=== PATIENT | female | born 1965 | race Caucasian/White ===

== ENCOUNTER → 2016-04-28 | Outpatient (CLI) | payer BC ==
--- NOTE | 2016-04-28 09:04 | MM ---
Reason for exam: clinical finding. Baseline mammogram. History: Patient is nulliparous. Physical Findings: Nurse Summary: 1cm nodule in the left breast at 1 o'clock (nurse kp). MG 3D Diag Mammo W/Cad SABRA Bilateral CC and MLO view(s) were taken. XCCL view(s) were taken of the left breast. The breast tissue is heterogeneously dense. This may lower the sensitivity of mammography. Circumscribed 4mm oval nodular asymmetry anterior lateral left breast on CC tomosynthesis has overall benign characteristics. Palpable marker along the upper outer left breast. These results were verbally communicated with the patient and result sheet given to the patient on 04/28/16. ASSESSMENT: Incomplete: need additional imaging evaluation, BI-RAD 0 RECOMMENDATION: Ultrasound of the left breast.
--- NOTE | 2016-04-28 09:18 | USB ---
Reason for exam: additional evaluation requested from abnormal screening. History: Patient is nulliparous. US Breast LT Left breast ultrasound including all four quadrants, the retroareolar region and axilla demonstrates a 0.36 x x0.18 x 0.45cm lesion too small to characterize at 1 o'clock, suspected lymph node with apparent echogenic hilum, corresponds to the palpable area. A 6 month follow up recommended for the mammographic finding. These results were verbally communicated with the patient and result sheet given to the patient on 04/28/16. ASSESSMENT: Probably benign, BI-RAD 3 RECOMMENDATION: Follow-up diagnostic mammogram of the left breast in 6 months.
== END | disposition home or self-care (01) ==
LOC: RADMAMWWP 07:31
PROVIDERS: ATTEND Obstetrics & Gynecology
DX: R92.8 Other abnormal and inconclusive findings on diagnostic imaging of breast (principal)
CPT/HCPCS: 76641; G0204; G0279

== ENCOUNTER → 2016-06-03 | Outpatient (CLI) | payer BC ==
[2016-06-03 07:53] LABS: Basophils # (A) 0.1 k/uL (0-0.2); Basophils % (A) 1 %; CH 34.2; CHCM 34.2; Eosinophils # (A) 0.3 k/uL (0-0.7); Eosinophils % (A) 5 %; HCT 43.2 % (34.0-46.0); HDW 2.63; HGB 14.2 gm/dL (11.4-16.0); Luc # (Auto) 0.23; Luc % (Auto) 4; Lymphocytes # (A) 1.3 k/uL (1.0-4.8); Lymphocytes % (A) 23 %; MCHC 32.9 g/dL (31.0-37.0); MCV 100.5 fL (80.0-100.0); Mean Platelet Volume 7.7; Monocytes # (A) 0.2 k/uL (0-1.0); Monocytes % (A) 5 %; Neutrophils # (A) 3.3 k/uL (1.3-7.7); Neutrophils % (A) 62 %; RDW 12.7 % (11.5-15.5); WBC 5.4 k/uL (3.8-10.6); WBC (Perox) 5.45
== END | disposition home or self-care (01) ==
LOC: LABPAT 07:24
PROVIDERS: ATTEND Obstetrics & Gynecology
DX: Z01.812 Encounter for preprocedural laboratory examination (principal)
CPT/HCPCS: 85025

== ENCOUNTER 2016-06-14 07:28 | Day surgery (SDC) | payer BC ==
[2016-06-10 13:55] VITALS: BMI 21.9
--- NOTE | 2016-06-13 20:23 | HP ---
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 She is scheduled for left labial lesion resection under anesthetic. ALLERGIES: CODEINE makes her pass out. MEDICATIONS: 1. Advil. 2. Aspirin p.r.n. PAST MEDICAL HISTORY: None. PAST SURGICAL HISTORY: Oral surgery. 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 No recent history of abnormal Pap smear but positive history for VIN2. SOCIAL HISTORY: She is a former smoker. She is . Negative for current tobacco, alcohol or drug use. FAMILY HISTORY: Noncontributory. REVIEW OF SYSTEMS: Negative except for that described above. PHYSICAL EXAM: Blood pressure 146/92, heart rate 73. Height 5 feet 5 inches. Weight 145 pounds. This is a pleasant female in no apparent distress. HEENT exam is unremarkable. LUNGS: Clear to auscultation bilaterally and the heart is regular rate and rhythm. ABDOMEN: Soft and nontender. On pelvic exam, she has a visible raised white lesion involving the left labia minora and previous ( ). The remainder of the external genitalia is negative for additional lesions. ASSESSMENT: A 51-year-old, 0 woman with DUY-2 of the left labium minora. Due to location of the lesion, surgical excision is felt to be the best option for dealing with this delicate area of tissue. The patient has been counseled regarding other options including topical treatment or CO2 laser ablation. She was counseled on the risks of the procedure which include disfigurement and scarring and possible infection. There is also possibility of incomplete resection and recurrence. The patient understands these risks and agrees to proceed. She is scheduled for the above-named procedure on 06/14/2016.
[~2016-06-14 07:28] MED LIST: DEXAMETHASONE SOD PHOSPHATE 10 MG/ML 1 ML VIAL IV ONE; HYDROmorphone 1 MG/ML 1 ML SYRINGE IVP PRN; LACTATED RINGERS 1,000 ML IV SCH; LIDOCAINE 1% 20 ML VIAL (10MG/ML) FOR IV START INTRADERMA PRN; MIDAZOLAM 2 MG/2 ML VIAL IV PRN; ONDANSETRON 4 MG/2 ML VIAL IVP ONE; Pre Op ABX Message 1 EACH MISC MISCELLANE ONE; SCOPOLAMINE 1.5MG/72HR PATCH TRANSDERM ONE
[2016-06-14] MEDS ORDERED: fentaNYL (PF) 50 MCG/ML 2 ML AMP ONE (08:20)
[2016-06-14] MEDS ORDERED: PROPOFOL 10 MG/ML 20 ML VIAL IV ONE (08:20)
[2016-06-14] MEDS ORDERED: MIDAZOLAM 2 MG/2 ML VIAL ONE (08:20)
[2016-06-14] MEDS ORDERED: LIDOCAINE 1% INJ 10MG/ML (20 ML MDV) ONE (08:20)
[2016-06-14] MEDS ORDERED: KETOROLAC 30 MG/ML 1 ML VIAL ONE (08:20)
[2016-06-14] MEDS ORDERED: LIDOCAINE 1% INJ 10MG/ML (20 ML MDV) SQ ONE (08:39)
--- NOTE | 2016-06-14 08:47 | P.OP ---
Date of Procedure: 06/14/16 Preoperative Diagnosis: Left labial DUY 2 Postoperative Diagnosis: Same Anesthesia: local, other Surgeon: Lindsay Gómez Estimated Blood Loss (ml): 2 IV fluids (ml): 400 Urine output (ml): 0 Pathology: other (Left labial lesion) Condition: stable Disposition: PACU Indications for Procedure: Left labial DUY 2 at the periphery of the left labia presenting comfortable resection in the office setting. Operative Findings: Thickened, left changes of the skin at the periphery of the left labia consistent with DUY Description of Procedure: After the patient was met in the preoperative holding area and all questions were answered, she was taken to the operating room where sedation was administered without incident. The left labia was inspected and the visceral limits of the on abnormalities were delineated with a marking pen. Once approximately 1.5 cm in vertical length and approximately 0.5 cm in depth. The left labia was then infused with 1% lidocaine plain. 11 blade scalpel was then utilized to resect the area of concern. 4-0 Vicryl suture was then utilized to reapproximate the labial tissue subcuticular fashion. Bacitracin was applied to the sites. The rest of the external genitalia was inspected no other gross visual lesions were noted. The patient was awoken from anesthetic without incident and transported to recovery area.
[2016-06-14 09:00] VITALS: TEMP 97.1
[2016-06-14 09:45] VITALS: RESP 16
[2016-06-14 10:00] VITALS: BP 122/75; PULSE 76
== END 2016-06-14 10:20 | disposition home or self-care (01) ==
LOC: OR 07:28
PROVIDERS: ATTEND Obstetrics & Gynecology
DX: D07.1 Carcinoma in situ of vulva (principal); Z87.891 Personal history of nicotine dependence; Z88.5 Allergy status to narcotic agent; K21.9 Gastro-esophageal reflux disease without esophagitis; Z79.3 Long term (current) use of hormonal contraceptives; Z79.1 Long term (current) use of non-steroidal anti-inflammatories (NSAID); Z79.82 Long term (current) use of aspirin
CPT/HCPCS: 11622; 81025; 88305; J2250; J1100; J2405; J2001; J3010; J1885; J2704

== ENCOUNTER → 2016-10-28 | Outpatient (CLI) | payer BC ==
--- NOTE | 2016-10-31 09:15 | MM ---
Reason for exam: follow-up at short interval from prior study. Last mammogram was performed 6 months ago. History: Patient is nulliparous. Physical Findings: Nurse Summary: A 0.5cm nodule in the left breast at 1:30 o'clock (nurse dw). MG 3D Diag Mammo W/Cad LT CC and MLO view(s) were taken of the left breast. Prior study comparison: April 28, 2016, bilateral MG 3d diag mammo w/cad SABRA. The breast tissue is heterogeneously dense. This may lower the sensitivity of mammography. There is no discrete abnormality, No abnormalities at BB. These results were verbally communicated with the patient and result sheet given to the patient on 10/28/16. ASSESSMENT: Benign, BI-RAD 2 RECOMMENDATION: Routine screening mammogram of both breasts in 6 months. Back on schedule.
== END | disposition home or self-care (01) ==
LOC: RADMAMWWP 07:01
PROVIDERS: ATTEND Obstetrics & Gynecology
DX: R92.8 Other abnormal and inconclusive findings on diagnostic imaging of breast (principal)
CPT/HCPCS: G0206; G0279

== ENCOUNTER 2017-05-12 07:22 | Day surgery (SDC) | payer BC ==
[2017-05-09 15:05] VITALS: BMI 21.9
[~2017-05-12 07:22] MED LIST changes: -DEXAMETHASONE SOD PHOSPHATE 10 MG/ML 1 ML VIAL IV ONE; -HYDROmorphone 1 MG/ML 1 ML SYRINGE IVP PRN; -LIDOCAINE 1% 20 ML VIAL (10MG/ML) FOR IV START INTRADERMA PRN; -MIDAZOLAM 2 MG/2 ML VIAL IV PRN; -ONDANSETRON 4 MG/2 ML VIAL IVP ONE; -Pre Op ABX Message 1 EACH MISC MISCELLANE ONE; -SCOPOLAMINE 1.5MG/72HR PATCH TRANSDERM ONE
[2017-05-12 07:43] VITALS: RESP 16; TEMP 98.8
[2017-05-12] MEDS ORDERED: LIDOCAINE 1% 20 ML VIAL (10MG/ML) FOR IV START INTRADERMA ONE (07:53)
[2017-05-12] MEDS ORDERED: PROPOFOL 10 MG/ML 20 ML VIAL IV ONE (07:59)
[2017-05-12] MEDS ORDERED: LIDOCAINE 1% INJ 10MG/ML (20 ML MDV) ONE (07:59)
[2017-05-12] MEDS ORDERED: IV FLUID CONTINUATION 1,000 ML IV ONE (08:21)
--- NOTE | 2017-05-12 08:21 | P.PCN ---
Date of Procedure: 05/12/17 Procedure(s) Performed: BRIEF HISTORY: Patient is a 52-year-old pleasant white female,, scheduled for an elective colonoscopy as a part of screening for colorectal neoplasia. PROCEDURE PERFORMED: Colonoscopy. PREOPERATIVE DIAGNOSIS: Screening for colon cancer. IV sedation per Anesthesia. PROCEDURE: After informed consent was obtained, the patient, was brought into the endoscopy unit. IV sedation was administered by Anesthesia under continuous monitoring. Digital rectal examination was normal. Initially the Olympus CF- 160 flexible video colonoscope was then inserted in the rectum, gradually advanced into the cecum without any difficulty. Careful examination was performed as the scope was gradually being withdrawn. Ileocecal valve and the appendiceal orifice were visualized and appeared normal. Prep was excellent. Mucosa of the cecum, ascending colon, transverse colon, descending colon, sigmoid colon, and rectum appeared normal. Retroflexion was performed in the rectum and no lesions were seen. The patient tolerated the procedure well. IMPRESSION: Normal-appearing colon from rectum to cecum with no evidence of colorectal neoplasia. RECOMMENDATIONS: Findings of this examination were discussed with the patient as well as a family. She was advised to have a repeat screening colonoscopy in 10 years..
[2017-05-12 08:39] VITALS: BP 119/80; PULSE 70
== END 2017-05-12 08:53 | disposition home or self-care (01) ==
LOC: ORWHC2ENDO 07:22
PROVIDERS: ATTEND Internal Medicine Gastroenterology
DX: Z12.11 Encounter for screening for malignant neoplasm of colon (principal); K21.9 Gastro-esophageal reflux disease without esophagitis; J45.909 Unspecified asthma, uncomplicated; Z88.5 Allergy status to narcotic agent
CPT/HCPCS: 81025; J2001; J2704; G0121

== ENCOUNTER → 2017-09-19 | Outpatient (CLI) | payer BC ==
--- NOTE | 2017-09-20 09:35 | MM ---
Reason for exam: screening (asymptomatic). Last mammogram was performed 11 months ago. History: Patient is nulliparous. Physical Findings: A clinical breast exam by your physician is recommended on an annual basis and results should be correlated with mammographic findings. MG 3D Screening Mammo W/Cad Bilateral CC and MLO view(s) were taken. Prior study comparison: October 28, 2016, left breast MG 3d diag mammo w/cad LT. April 28, 2016, bilateral MG 3d diag mammo w/cad SABRA. The breast tissue is heterogeneously dense. This may lower the sensitivity of mammography. There is no discrete abnormality. No significant changes when compared with prior studies. ASSESSMENT: Negative, BI-RAD 1 RECOMMENDATION: Routine screening mammogram of both breasts in 1 year.
== END | disposition home or self-care (01) ==
LOC: RADMAMWWP 07:15
PROVIDERS: ATTEND Obstetrics & Gynecology
DX: Z12.31 Encounter for screening mammogram for malignant neoplasm of breast (principal)
CPT/HCPCS: 77063; 77067

== ENCOUNTER → 2019-04-10 | Outpatient (CLI) | payer BC ==
--- NOTE | 2019-04-11 14:21 | MM ---
Reason for exam: screening (asymptomatic). Last mammogram was performed 1 year and 7 months ago. History: Patient is nulliparous. Took hormonal contraceptives for 31 years beginning at age 20. Physical Findings: A clinical breast exam by your physician is recommended on an annual basis and results should be correlated with mammographic findings. MG 3D Screening Mammo W/Cad Bilateral CC and MLO view(s) were taken. Prior study comparison: September 19, 2017, bilateral MG 3d screening mammo w/cad. October 28, 2016, left breast MG 3d diag mammo w/cad LT. The breast tissue is heterogeneously dense. This may lower the sensitivity of mammography. No suspicious abnormality. No significant changes when compared with prior studies. ASSESSMENT: Negative, BI-RAD 1 RECOMMENDATION: Routine screening mammogram of both breasts in 1 year.
== END | disposition home or self-care (01) ==
LOC: RADMAMWWP 07:19
PROVIDERS: ATTEND Obstetrics & Gynecology
DX: Z12.31 Encounter for screening mammogram for malignant neoplasm of breast (principal)
CPT/HCPCS: 77063; 77067

== ENCOUNTER → 2022-08-05 | Outpatient (CLI) | payer BC ==
--- NOTE | 2022-08-08 18:33 | MM ---
Reason for Exam: Screening (asymptomatic). Last mammogram was performed 3 year(s) and 4 month(s) ago. Patient History: Menarche at age 14. Patient has no children. Hormonal Contraceptives for 31 years from age 20 until age 51. Risk Values: Sylvie 5 year model risk: 1.4%. NCI Lifetime model risk: 8.9%. Prior Study Comparison: 10/28/2016 Left Diagnostic Mammogram, [facility]. 09/19/2017 Bilateral Screening Mammogram, [facility]. 04/10/2019 Bilateral Screening Mammogram, [facility]. Tissue Density: The breast tissue is heterogeneously dense. This may lower the sensitivity of mammography. Findings: Analyzed By CAD. There is no suspicious group of microcalcifications or new suspicious mass in either breast. Overall Assessment: Negative, BI-RAD 1 Management: Screening Mammogram of both breasts in 1 year. . Patient should continue monthly self-breast exams. A clinical breast exam by your physician is recommended on an annual basis. This exam should not preclude additional follow-up of suspicious palpable abnormalities. Note on Sylvie scores and lifetime risk: 1. A Sylvie score greater than 3% is considered moderate risk. If this is the case, consider specialist referral to assess eligibility for a risk reducing agent. 2. If overall lifetime risk for the development of breast cancer is 20% or higher, the patient may qualify for future screening with alternating mammogram and breast MRI. Electronically signed and approved by: Jeffrey Hutchinson M.D. Radiologist
== END | disposition home or self-care (01) ==
LOC: RADMAMWWP 07:24
PROVIDERS: ATTEND Family Medicine
DX: Z12.31 Encounter for screening mammogram for malignant neoplasm of breast (principal)
CPT/HCPCS: 77063; 77067

== ENCOUNTER → 2024-10-02 | Outpatient (CLI) | payer BC ==
--- NOTE | 2024-10-02 08:06 | BD ---
EXAMINATION TYPE: Axial Bone Density DATE OF EXAM: 10/02/2024 CLINICAL HISTORY: 59 years old Female. ICD-10 CODE: Z78.0 , Additional History: Height: 65 Weight: 146 FRAX RISK QUESTIONS: Family History (Parent hip fracture): yes History of Fracture in Adulthood: yes Secondary Osteoporosis: no RISK FACTORS HISTORY OF: History of lt Wrist Fracture: yes When: age 8 Surgery to Spine/Hip(right/left)/Wrist (right/left): no MEDICATIONS: Thyroid Medications: no Osteoporosis Medications: no EXAM MEASUREMENTS: Bone mineral densitometry was performed using the Upward Mobility System. Bone mineral density as measured about the Lumbar spine is: ----- L1-L4(G/cm2): 0.987 T Score Values are as follows: ----- L1: -2.3 ----- L2: -2.4 ----- L3: -1.2 ----- L4: -0.9 ----- L1-L4: -1.6 Z Score Values are as follows: ----- L1: -1.3 ----- L2: -1.3 ----- L3: -0.2 ----- L4: 0.1 ----- L1-L4: -0.6 Bone mineral density baseline Bone mineral density about the R hip (g/cm2): 1.001 Bone mineral density about the L hip (g/cm2): 0.982 T Score values are as follows: -----R Neck: -1.0 -----L Neck: -1.4 -----R Total: -0.1 -----L Total: -0.2 Z Score values are as follows: -----R Neck: 0.1 -----L Neck: -0.3 -----R Total: 0.8 -----L Total: 0.6 Bone mineral density baseline FRAX%s: The graph provided illustrates a 7.4% chance for a major osteoporotic fx and a 0.6% chance fo r the hips probability for fx in 10 years time. IMPRESSION: Osteopenia (T Score between -2.5 and -1). There is slightly increased risk of fracture and the patient may be considered for treatment. Re-Screen 2-5 years. NOTE: T-SCORE=SD OF THE YOUNG ADULT MEAN. [facility], , 10/02/2024 8:04 AM
--- NOTE | 2024-10-02 08:11 | MM ---
Reason for Exam: Screening (asymptomatic). Last mammogram was performed 2 year(s) and 2 month(s) ago. Patient History: Menarche at age 14. Patient has no children. Postmenopausal. Hormonal Contraceptives for 31 years from age 20 until age 51. Risk Values: Sylvie 5 year model risk: 1.5%. NCI Lifetime model risk: 8.5%. Prior Study Comparison: 09/19/2017 Bilateral Screening Mammogram, [facility]. 04/10/2019 Bilateral Screening Mammogram, [facility]. 08/05/2022 Bilateral MG 3D screening mammo w/cad, [facility]. Tissue Density: The breasts are heterogeneously dense, which may obscure small masses. Findings: Analyzed By CAD. There is no suspicious group of microcalcifications or new suspicious mass in either breast. Overall Assessment: Negative, BI-RAD 1 Management: Screening Mammogram of both breasts in 1 year. . Patient should continue monthly self-breast exams. A clinical breast exam by your physician is recommended on an annual basis. This exam should not preclude additional follow-up of suspicious palpable abnormalities. Note on Sylvie scores and lifetime risk: 1. A Sylvie score greater than 3% is considered moderate risk. If this is the case, consider specialist referral to assess eligibility for a risk reducing agent. 2. If overall lifetime risk for the development of breast cancer is 20% or higher, the patient may qualify for future screening with alternating mammogram and breast MRI. [facility], , 10/02/2024 8:08 AM. Electronically signed and approved by: Riley Ortiz M.D.
== END | disposition home or self-care (01) ==
LOC: RADMAMWWP 07:11
PROVIDERS: ATTEND Family Medicine
DX: Z12.31 Encounter for screening mammogram for malignant neoplasm of breast (principal); M85.89 Other specified disorders of bone density and structure, multiple sites; R92.333 Mammographic heterogeneous density, bilateral breasts; Z92.0 Personal history of contraception; Z78.0 Asymptomatic menopausal state
CPT/HCPCS: 77063; 77067; 77080